=== PATIENT | male | born 1965 | race Caucasian/White ===

== ENCOUNTER 2017-12-27 08:01 | Emergency (ER) | payer BC ==
--- NOTE | 2017-12-27 09:13 | ER Document Report ---
ED General <CANDELARIO QUINTANILLA - Last Filed: 12/27/17 12:59> - General Mode of Arrival: Ambulatory Information source: Patient TRAVEL OUTSIDE OF THE [place] IN LAST 30 DAYS: No <BETH REGALADO - Last Filed: 12/27/17 13:16> - General Chief Complaint: Dizziness Stated Complaint: DIZZY, LIGHTHEADED Time Seen by Provider: 12/27/17 09:01 Notes: 52-year-old male presenting to the emergency department today with complaints of sudden onset of feeling "off balance" which was somewhat relieved by squatting down on one knee. Patient states he got "very flushed and broke out into a hot sweat" after his symptoms began. Patient states he took nitroglycerin shortly after this began. Patient mentions he also had a headache prior to this occurring, stating he thinks it could be his sinuses. Patient had an RCA stent placed secondary to a STEMI on 07/14/2014 and is currently on an baby aspirin a day. (BETH REGALADO) - Related Data Allergies/Adverse Reactions: Penicillins Allergy (Severe, Verified 12/27/17 08:02) Past Medical History - General Information source: Patient - Social History Smoking Status: Current Every Day Smoker Cigarette use (# per day): No Chew tobacco use (# tins/day): No Frequency of alcohol use: Social Drug Abuse: None Lives with: Family Family History: Reviewed & Not Pertinent, Other - No known cardiac history Patient has suicidal ideation: No Patient has homicidal ideation: No Renal/ Medical History: Denies: Hx Peritoneal Dialysis Past Surgical History: Reports: Hx Cardiac Catheterization - RCA stent, Hx Orthopedic Surgery - left wrist - Immunizations Hx Diphtheria, Pertussis, Tetanus Vaccination: Yes <BETH REGALADO - Last Filed: 12/27/17 13:16> Review of Systems - Review of Systems Constitutional: No symptoms reported EENT: No symptoms reported Cardiovascular: See HPI, Dizziness Respiratory: No symptoms reported Gastrointestinal: No symptoms reported Genitourinary: No symptoms reported Male Genitourinary: No symptoms reported Musculoskeletal: No symptoms reported Skin: No symptoms reported Hematologic/Lymphatic: No symptoms reported Neurological/Psychological: See HPI, Headaches -: Yes All other systems reviewed and negative <BETH REGALADO - Last Filed: 12/27/17 13:16> Physical Exam <CANDELARIO QUINTANILLA - Last Filed: 12/27/17 12:59> <BETH REGALADO - Last Filed: 12/27/17 13:16> - Vital signs Vitals: Temp Pulse Resp BP Pulse Ox 98.3 F 84 15 142/94 H 99 12/27/17 08:04 12/27/17 08:04 12/27/17 08:04 12/27/17 08:04 12/27/17 08:04 - Notes Notes: Physical Exam: General: Alert, appears much older than stated age. HEENT: Normocephalic. Atraumatic. PERRL. Extraocular movements intact. Oropharynx clear. Slight lateral gaze nystagmus. No carotid bruits. Neck: Supple. Non-tender. Respiratory: No respiratory distress. Clear and equal breath sounds bilaterally. Cardiovascular: Regular rate and rhythm. Abdominal: Normal Inspection. Non-tender. No distension. Normal Bowel Sounds. Back: Non-tender. No deformity or step off. Extremities: Moves all four extremities. Upper extremities: Normal inspection. Normal ROM. Lower extremities: Normal inspection. No edema. Normal ROM. Neurological: Normal cognition. AAOx4. Normal speech. Psychological: Normal affect. Normal Mood. Skin: Warm. Dry. Normal color. (BETH REGALADO) Course - Laboratory Result Diagrams: 12/27/17 09:20 12/27/17 09:20 - Diagnostic Test Radiology reviewed: Reports reviewed - CT scan shows paranasal sinus inflammation and sinusitis. <CANDELARIO QUINTANILLA - Last Filed: 12/27/17 12:59> - Laboratory Result Diagrams: 12/27/17 09:20 12/27/17 09:20 <BETH REGALADO - Last Filed: 12/27/17 13:16> - Re-evaluation Re-evalutation: 12/27/17 13:01 The results of the CT scan and MRI were discussed with the patient. The likely diagnoses of this being sinusitis causing all his symptoms were discussed. He is agreeable to treating the sinus infection and taking meclizine for the off- balance sensation if needed. He will return if there is any new or worsening of his symptoms. (CANDELARIO QUINTANILLA) - Vital Signs Vital signs: Temp Pulse Resp BP Pulse Ox 98.2 F 73 14 143/90 H 98 12/27/17 13:00 12/27/17 12:00 12/27/17 13:00 12/27/17 12:57 12/27/17 13:00 - Laboratory Laboratory results interpreted by me: 12/27/17 12/27/17 12/27/17 09:05 09:20 09:20 Hgb 17.2 H Glucose 111 H Creatine Kinase 54 L Urine Protein 30 H Urine Ketones TRACE H Urine Urobilinogen 4.0 H Ur Leukocyte Esterase TRACE H Discharge <CANDELARIO QUINTANILLA - Last Filed: 12/27/17 12:59> <BETH REGALADO - Last Filed: 12/27/17 13:16> - Discharge Clinical Impression: Disequilibrium Sinusitis Qualifiers: Sinusitis location: unspecified location Chronicity: acute Recurrence: non- recurrent Qualified Code(s): J01.90 - Acute sinusitis, unspecified Headache Qualifiers: Headache type: unspecified Headache chronicity pattern: acute headache Intractability: not intractable Qualified Code(s): R51 - Headache Condition: Stable Disposition: HOME, SELF-CARE Additional Instructions: Sinusitis: You have sinusitis, an infection of the sinus cavities of the face. The sinuses are air-filled chambers which open into the inside of the nose. Bacteria and pus fill a sinus, causing pain, drainage, and fever. Sinusitis is treated with antibiotics. Often, expectorants (to thin the sinus mucous) or decongestants (to reduce swelling) are prescribed as well. Healing requires seven to 10 days. Avoid chemical fumes, pollens, dusts, and smoke (especially cigarette smoke ). Keep the air humidified in your bedroom and work area and take plenty of liquids by mouth. This condition can be serious if the infection spreads. If your symptoms worsen, or if you develop severe headache, high fever, stiff neck, or a rash, you must call the doctor or return for re-evaluation. Take the medications as prescribed for your sinus infection. Try the meclizine to see if it helps with your off-balance sensation. Drink plenty of fluids and get plenty of rest over the next few days. Take Tylenol and ibuprofen or Aleve for the headache if needed. Try to reduce smoking as this contributes to sinus inflammation. Follow-up with local medical doctor if not improving. RETURN TO THE EMERGENCY ROOM IF ANY NEW OR WORSENING SYMPTOMS. Prescriptions: Levofloxacin [Levaquin 750 mg Tablet] 750 mg PO DAILY #5 tablet Meclizine HCl [Antivert 25 mg Tablet] 25 mg PO TID PRN #25 tablet PRN Reason: Referrals: DUC ARROYO MD [Primary Care Provider] - Follow up as needed Scribe Attestation: 12/27/17 10:48 I personally performed the services described in the documentation, reviewed and edited the documentation which was dictated to the scribe in my presence, and it accurately records my words and actions. (CANDELARIO QUINTANILLA)
--- NOTE | 2017-12-27 09:20 | EKG REPORT ---
SEVERITY:- ABNORMAL ECG - SINUS RHYTHM PROBABLE LEFT ATRIAL ABNORMALITY LEFT VENTRICULAR HYPERTROPHY INFERIOR INFARCT, AGE INDETERMINATE BORDERLINE PROLONGED QT INTERVAL : Confirmed by: Monico Cross 27-Dec-2017 09:20:02
[2017-12-27 09:23] LABS: APPEARANCE,URINE SLIGHTLY-CLOUDY; BILIRUBIN,URINE NEGATIVE (NEGATIVE); GLUCOSE, URINE NEGATIVE (NEGATIVE); KETONES,URINE TRACE mg/dL (NEGATIVE); LEUKOCYTE ESTERASE,URINE TRACE (NEGATIVE); NITRITE,URINE NEGATIVE (NEGATIVE); PROTEIN,URINE 30 mg/dL (NEGATIVE)
[2017-12-27 09:24] LABS: COLOR,URINE YELLOW
[2017-12-27 09:29] LABS: ABSOLUTE EOSINOPHILS # (AUTO) 0.1 10^3/uL (0.0-0.6); ABSOLUTE LYMPHOCYTES (AUTO) 1.1 10^3/uL (0.5-4.7); ABSOLUTE MONOCYTES (AUTO) 0.7 10^3/uL (0.1-1.4); ABSOLUTE NEUT (AUTO) 4.9 10^3/uL (1.7-8.2); BASOPHILS % (AUTO) 0.5 % (0-2); EOSINOPHILS % (AUTO) 0.9 % (0-6); HEMATOCRIT 49.4 % (37.9-51.0); HEMOGLOBIN 17.2 g/dL (13.5-17.0); LYMPHOCYTES % (AUTO) 16.4 % (13-45); MEAN CORPUSCULAR HEMOGLOBIN 32.7 pg (27.0-33.4); MEAN CORPUSCULAR HGB CONC 34.7 g/dL (32.0-36.0); MEAN CORPUSCULAR VOLUME 94 fl (80-97); MONOCYTES % (AUTO) 10.3 % (3-13); PLATELET COUNT 245 10^3/uL (150-450); RED BLOOD COUNT 5.25 10^6/uL (4.35-5.55); RED CELL DISTRIBUTION WIDTH 13.5 % (11.5-14.0); SEGMENTED NEUTROPHILS % (AUTO) 71.9 % (42-78); TOTAL CELLS COUNTED % (AUTO) 100 %; WHITE BLOOD COUNT 6.8 10^3/uL (4.0-10.5)
[2017-12-27 09:36] LABS: INTERNATIONAL RATION (INR) 0.92; PROTHROMBIN TIME 12.8 SEC (11.4-15.4)
[2017-12-27 09:43] LABS: ALANINE AMINOTRANSFERASE 23 U/L (21-72); ALKALINE PHOSPHATASE 61 U/L (38-126); ANION GAP 12 (5-19); ASPARTATE AMINO TRANSFERASE 26 U/L (17-59); BILIRUBIN,DIRECT 0.3 mg/dL (0.0-0.4); BILIRUBIN,TOTAL 0.5 mg/dL (0.2-1.3); BLOOD UREA NITROGEN 8 mg/dL (7-20); CALCIUM 9.2 mg/dL (8.4-10.2); CARBON DIOXIDE 28 mmol/L (22-30); CHLORIDE 105 mmol/L (98-107); CREATINE KINASE 54 U/L (55-170); GLUCOSE 111 mg/dL (75-110); POTASSIUM 4.2 mmol/L (3.6-5.0); SODIUM 144.9 mmol/L (137-145); TOTAL PROTEIN 7.4 g/dL (6.3-8.2)
--- NOTE | 2017-12-27 09:44 | RADIOLOGY REPORT (SQ) ---
EXAM DESCRIPTION: CT HEAD WITHOUT COMPLETED DATE/TIME: 12/27/2017 9:35 am REASON FOR STUDY: Acute headache with dizziness, nausea, near syncop COMPARISON: None. TECHNIQUE: Axial images acquired through the brain without intravenous contrast. Images reviewed wi th bone, brain and subdural windows. Additional sagittal and coronal reconstructions were generated. Images stored on PACS. All CT scanners at this facility use dose modulation, iterative reconstruction, and/or weight based d osing when appropriate to reduce radiation dose to as low as reasonably achievable (ALARA). [facility]: Dose Right [facility]: CareDose [facility]: Dose Right [facility]: Teradose 4D [facility]: Qminder RADIATION DOSE: CT Rad equipment meets quality standard of care and radiation dose reduction techniq ues were employed. CTDIvol: 48.6 mGy. DLP: 954 mGy-cm. mGy. LIMITATIONS: None. FINDINGS: VENTRICLES: Normal size and contour. CEREBRUM: No masses. No hemorrhage. No midline shift. No evidence for acute infarction. Normal gra y/white matter differentiation. No areas of low density in the white matter. CEREBELLUM: No masses. No hemorrhage. No alteration of density. No evidence for acute infarction. EXTRAAXIAL SPACES: No fluid collections. No masses. ORBITS AND GLOBE: No intra- or extraconal masses. Normal contour of globe without masses. CALVARIUM: No fracture. PARANASAL SINUSES: Mucous membrane thickening sinus fluid in the ethmoid and right maxillary sinuses. SOFT TISSUES: No mass or hematoma. OTHER: No other significant finding. IMPRESSION: NORMAL BRAIN CT WITHOUT CONTRAST. SINUS DISEASE. EVIDENCE OF ACUTE STROKE: NO. COMMENT: Quality ID # [id number]: Final reports with documentation of one or more dose reduction techniques (e.g., Automated exposure control, adjustment of the mA and/or kV according to patient size, use of iterative reconstruction technique) TECHNICAL DOCUMENTATION: JOB ID: [id number] [employer]- All Rights Reserved Reading location - IP/workstation name: [email or web address]
[2017-12-27 09:54] LABS: CREATINE KINASE MB 0.44 ng/mL (<4.55)
[2017-12-27 09:58] LABS: TROPONIN I < 0.012 ng/mL
--- NOTE | 2017-12-27 11:57 | RADIOLOGY REPORT (SQ) ---
EXAM DESCRIPTION: MRI HEAD WITHOUT COMPLETED DATE/TIME: 12/27/2017 11:28 am REASON FOR STUDY: Acute onset dizzy lightheaded diaphoretic COMPARISON: CT brain same date 12/27/2017 TECHNIQUE: Multiplanar imaging includes non-contrasted T1, T2, FLAIR, and diffusion with ADC map seq uences. Images stored on PACS. LIMITATIONS: None. FINDINGS: ANATOMY: No congenital anomalies. Normal vascular flow voids. Pituitary fossa normal. CSF SPACES: Normal in size and contour. No hemorrhage. CEREBRUM: Sulci and gyri normal in size and contour. Normal white matter signal on FLAIR imaging. No evidence of hemorrhage, mass, or extraaxial fluid collection. POSTERIOR FOSSA: No signal alteration. No hemorrhage. No edema, masses or mass effect. Internal yoko tory canals, cerebello-pontine angles, mastoids normal. DIFFUSION IMAGING: Negative for acute or sub-acute infarction. ORBITS: No masses. Globes normal. PARANASAL SINUSES: Mucous membrane thickening is present in the bilateral frontal, bilateral ethmoid sinuses and floor right maxillary sinus. OTHER: No other significant finding. IMPRESSION: MILD INFLAMMATORY CHANGES IN THE PARANASAL SINUSES. OTHERWISE, UNREMARKABLE MRI OF THE BRAIN WITHOUT INTRAVENOUS GADOLINIUM CONTRAST. EVIDENCE OF ACUTE STROKE: NO. TECHNICAL DOCUMENTATION: JOB ID: [id number] [employer]- All Rights Reserved Reading location - IP/workstation name: [email or web address]
[2017-12-27 13:04] VITALS: BP 143/90
== END 2017-12-27 13:00 | disposition home or self-care (01) ==
LOC: ER 08:01
DX: J01.90 Acute sinusitis, unspecified (principal); E87.8 Other disorders of electrolyte and fluid balance, not elsewhere classified; R51 Headache; F17.200 Nicotine dependence, unspecified, uncomplicated; Z88.0 Allergy status to penicillin
CPT/HCPCS: 36415; 70450; 70551; 80053; 81001; 82550; 82553; 83735; 84484; 85025; 85610; 93005; 93010; 99284